=== PATIENT | female | born 1930 | race American Indian/Alaskan Native ===

== ENCOUNTER 2018-02-24 15:48 | Emergency (ER) | payer MEDICARE ==
[2018-02-24 15:49] VITALS: BMI 18.6
[2018-02-24 16:08] VITALS: TEMP 98
--- NOTE | 2018-02-24 16:14 | ED PDOC ---
Arrival/HPI - General Chief Complaint: Syncope Time Seen by Provider: 02/24/18 16:00 Historian: Patient - History of Present Illness Narrative History of Present Illness (Text): 02/24/18 16:06 A 87 year old female, whose past medical history includes hypertension, presents to the emergency department complaining of lightheadedness prior to arrival. Patient reports she was getting her hair/nails done and felt "faint" after standing up. Daughter reports patient needed assistance getting to the car. While in the emergency room, patient was brought in a wheelchair and helped getting onto the stretcher. On evaluation, patient reports she feels better and her symptom has improved. Patient denies any fever, chills, nausea, vomiting, abdominal pain, chest pain, shortness of breath or any other complaints. PMD: None; Patient is followed by home visiting nurse practitioner Time/Duration: Prior to Arrival Symptom Course: Improving Context: Other Past Medical History - Provider Review Nursing Documentation Reviewed: Yes - Infectious Disease Hx of Infectious Diseases: None - Tetanus Immunization Tetanus Immunization: Unknown - Cardiac Hx Hypertension: Yes - Neurological Hx Dizziness: Yes - Endocrine/Metabolic Hx Hypothyroidism: Yes - Hematological/Oncological Hx Blood Transfusions: No Hx Blood Transfusion Reaction: No - Musculoskeletal/Rheumatological Hx Falls: Yes (fell last month) - Psychiatric Hx Substance Use: No - Surgical History Hx Hysterectomy: Yes Other/Comment: ct scan guided right lateral chest/axillary pigtail chest tube , due to hemothorax post fall and fx ribs - Anesthesia Hx Anesthesia Reactions: No Hx Malignant Hyperthermia: No Family/Social History - Physician Review Nursing Documentation Reviewed: Yes Family/Social History: No Known Family HX Smoking Status: Former Smoker Hx Alcohol Use: No Hx Substance Use: No Allergies/Home Meds Allergies/Adverse Reactions: Allergies No Known Allergies Allergy (Verified 02/24/18 16:05) Home Medications: Home Meds Medication Instructions Recorded Confirmed Unobtainable 02/24/18 02/24/18 Review of Systems - Physician Review All systems were reviewed & negative as marked: Yes - Review of Systems Constitutional: absent: Fevers, Night Sweats Respiratory: absent: SOB Cardiovascular: absent: Chest Pain Gastrointestinal: absent: Abdominal Pain, Nausea, Vomiting Neurological: Other (Lightheadedness) Physical Exam Vital Signs Reviewed: Yes Vital Signs Temp Pulse Resp BP Pulse Ox 04/04/18 19:45 68 18 120/44 L 98 02/24/18 16:04 98.0 F 120 H 24 126/74 92 L Temperature: Afebrile Blood Pressure: Normal Pulse: Tachycardic Respiratory Rate: Normal Appearance: Positive for: Well-Appearing, Non-Toxic, Comfortable Pain Distress: None Mental Status: Positive for: Alert and Oriented X 3 - Systems Exam Head: Present: Atraumatic, Normocephalic Pupils: Present: PERRL Extroacular Muscles: Present: EOMI Conjunctiva: Present: Normal Mouth: Present: Moist Mucous Membranes Neck: Present: Normal Range of Motion Respiratory/Chest: Present: Clear to Auscultation, Good Air Exchange. No: Respiratory Distress, Accessory Muscle Use Cardiovascular: Present: Murmurs (2/6 systolic murmur), Normal S1, S2 Abdomen: No: Tenderness, Distention, Peritoneal Signs Back: Present: Normal Inspection Upper Extremity: Present: Normal Inspection. No: Cyanosis, Edema Lower Extremity: Present: Normal Inspection. No: Edema Neurological: Present: GCS=15, CN II-XII Intact, Speech Normal Skin: Present: Warm, Dry, Normal Color. No: Rashes Psychiatric: Present: Alert, Oriented x 3, Normal Insight, Normal Concentration Medical Decision Making ED Course and Treatment: 02/24/18 16:06 Impression: A 87 year old female with lightheadedness. Patient notes her symptom has improved. Plan: -- Head CT -- Chest xray -- EKG -- Labs -- Reassess and disposition Progress Notes: EKG shows NSR at 68 BPM with normal intervals, normal axis. Interpreted by me. Report Date : 02/24/2018 16:37:02 Procedure: Chest xray Dictator : Jean Queen MD IMPRESSION: No acute cardiopulmonary disease appreciable. 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 Report Date : 02/24/2018 20:32:00 EXAM: CT Head Without Intravenous Contrast Dictated By: Jabier Rowan MD, MD IMPRESSION: 1. No acute intracranial hemorrhage or acute territorial type infarct. 2. There are periventricular foci of hypodensity, likely representing small vessel ischemic disease in a patient this age. 3. Mild atrophy. 4. Paranasal sinus disease is noted above. 02/24/18 20:53 On re-evaluation, patient feels better and is in no acute distress. I have discussed the results and plan with the patient, who expresses understanding. Patient in agreement with plan to be discharged home. Patient is stable for discharge. Patient was instructed to follow up with physician or return if symptoms worsen or new concerning symptoms arise. - Lab Interpretations Lab Results: 02/24/18 16:40 02/24/18 16:40 Lab Results 02/24/18 17:36: Urine Color Yellow, Urine Appearance Sl cloudy, Urine pH 7.0, Ur Specific [place] 1.020, Urine Protein 100 H, Urine Glucose (UA) Negative, Urine Ketones Negative, Urine Blood Negative, Urine Nitrate Negative, Urine Bilirubin Negative, Urine Urobilinogen 0.2, Ur Leukocyte Esterase Negative, Urine RBC Negative, Urine WBC 1 - 3, Ur Epithelial Cells 0 - 2, Urine Bacteria Few 02/24/18 16:40: Sodium 139, Potassium 3.8, Chloride 102, Carbon Dioxide 26, Anion Gap 16, BUN 20, Creatinine 0.7, Est GFR ( Amer) > 60, Est GFR (Non- Af Amer) > 60, Random Glucose 172 H, Calcium 11.0 H, Total Bilirubin 0.7, AST 32 , ALT 30, Alkaline Phosphatase 88, Lactate Dehydrogenase 511, Total Creatine Kinase 66, Troponin I < 0.01 D, Total Protein 8.4 H, Albumin 4.5, Globulin 3.9 , Albumin/Globulin Ratio 1.1 02/24/18 16:40: PT 13.8 H, INR 1.21 H 02/24/18 16:40: WBC 6.5, RBC 4.20, Hgb 12.7, Hct 37.5, MCV 89.3, MCH 30.2, MCHC 33.9, RDW 13.6, Plt Count 208, MPV 10.6, Gran % 58.0, Lymph % (Auto) 33.5, Dare % (Auto) 7.4 H, Eos % (Auto) 0.8 L, Baso % (Auto) 0.3, Gran # 3.76, Lymph # ( Auto) 2.2, Dare # (Auto) 0.5, Eos # (Auto) 0.1, Baso # (Auto) 0.02 I have reviewed the lab results: Yes - RAD Interpretation Radiology Orders: 02/24/18 16:06 HEAD W/O CONTRAST [CT] Stat CHEST PORTABLE [RAD] Stat - Scribe Statement The provider has reviewed the documentation as recorded by the Scribe Rosio Azar Provider Scribe Attestation: All medical record entries made by the Scribe were at my direction and personally dictated by me. I have reviewed the chart and agree that the record accurately reflects my personal performance of the history, physical exam, medical decision making, and the department course for this patient. I have also personally directed, reviewed, and agree with the discharge instructions and disposition. Disposition/Present on Arrival - Present on Arrival Any Indicators Present on Arrival: No History of DVT/PE: No History of Uncontrolled Diabetes: No Urinary Catheter: No History of Decub. Ulcer: No History Surgical Site Infection Following: None - Disposition Have Diagnosis and Disposition been Completed?: Yes Diagnosis: Near syncope Disposition: HOME/ ROUTINE Disposition Time: 20:49 Patient Plan: Discharge Patient Problems: Current Active Problems Problem Status Onset Near syncope Acute Condition: GOOD Discharge Instructions (ExitCare): Near Fainting (DC) Additional Instructions: [place] - I am not certain what happened earlier today, but all your test results look good. Please follow up with your doctor tomorrow. Take all of your test results with you. Return to us if worse or any problems. Edward- Dr. Miguel Aguirre Referrals: Taryn Elam, RN, MSN, [employer] [Primary Care Provider] - Follow up with primary Forms: [facility] (Sami)
--- NOTE | 2018-02-24 16:38 | RAD ---
HISTORY: Near Syncope COMPARISON: No prior. FINDINGS: LUNGS: No active pulmonary disease. PLEURA: Chronic fibrosis likely blunts the right costophrenic sulcus with small chronic right pleural effusion not completely excluded. CARDIOVASCULAR: Prominent cardiac silhouette appears stable. No pulmonary vascular derangement identified. OSSEOUS STRUCTURES: No significant abnormalities. VISUALIZED UPPER ABDOMEN: Normal. OTHER FINDINGS: None. IMPRESSION: No acute cardiopulmonary disease appreciable. 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
[2018-02-24 16:58] LABS: BASO # 0.02 K/mm3 (0.0-2.0); BASO % 0.3 % (0.0-3.0); EOS # 0.1 (0.0-0.7); EOS % 0.8 % (1.5-5.0); GRAN # 3.76 (1.4-6.5); HEMOGLOBIN 12.7 g/dL (12.0-16.0); LYMPH # 2.2 (1.2-3.4); LYMPH % 33.5 % (22.0-35.0); MEAN CELL VOLUME 89.3 fl (80.0-105.0); MEAN CORPUSCULAR HEMOGLOBIN 30.2 pg (25.0-35.0); MEAN CORPUSCULAR HGB CONC 33.9 g/dl (31.0-37.0); MEAN PLATELET VOLUME 10.6 fl (7.0-11.0); MONO # 0.5 (0.1-0.6); MONO % 7.4 % (1.0-6.0); RBC 4.2 10^6/uL (3.5-6.1); RED CELL DISTRIBUTION WIDTH 13.6 % (11.5-14.5); WHITE BLOOD COUNT 6.5 10^3/ul (4.5-11.0)
[2018-02-24 17:09] LABS: ALB/GLOB RATIO 1.1 (1.1-1.8); ALBUMIN 4.5 g/dL (3.0-4.8); ALT/SGPT 30 U/L (7-56); AST/SGOT 32 U/L (14-36); BLOOD UREA NITROGEN 20 mg/dL (7-21); GFR AFRICAN-AMERICAN > 60; GFR NON-AFRICAN AMERICAN > 60
[2018-02-24 17:15] LABS: INR 1.21 (0.93-1.08); PROTHROMBIN TIME 13.8 SECONDS (9.4-12.5)
[2018-02-24 17:20] LABS: TROPONIN I < 0.01 ng/mL
[2018-02-24 19:45] VITALS: RESP 18
[2018-02-24 19:45] LABS: URINE BILIRUBIN NEGATIVE (NEGATIVE); URINE BLOOD NEGATIVE (NEGATIVE); URINE GLUCOSE (UA) NEGATIVE (NEGATIVE); URINE LEUKOCYTE ESTERASE NEGATIVE Leu/uL (NEGATIVE); URINE PROTEIN 100 mg/dL (<30 mg/dL); URINE UROBILINOGEN 0.2 E.U./dL (<1 E.U./dL)
[2018-02-24 19:48] LABS: URINE APPEARANCE SL CLOUDY (CLEAR); URINE COLOR YELLOW (YELLOW)
[2018-02-24 20:02] LABS: URINE BACTERIA FEW (NEG); URINE EPITHELIAL CELLS 0 - 2 /hpf (0-5); URINE RBC NEGATIVE /hpf (0-2)
--- NOTE | 2018-02-24 20:32 | CT ---
EXAM: CT Head Without Intravenous Contrast EXAM DATE/TIME: 02/24/2018 4:06 PM CLINICAL HISTORY: The patient age is 87 years old and is female; Signs and symptoms; Syncope and collapse; Additional info: Near syncope Facility exam id and description: Ct heads head w/o contrast TECHNIQUE: Axial computed tomography images of the head/brain without intravenous contrast. All CT scans at this facility use one or more dose reduction techniques, viz.: automated exposure control; ma/kV adjustment per patient size (including targeted exams where dose is matched to indication; i.e. head); or iterative reconstruction technique. Coronal and sagittal reformatted images were created and reviewed. COMPARISON: CT - HEAD W/O (CODE STROKE) 2016-08-07 14:01 FINDINGS: Brain: There are periventricular foci of hypodensity, likely representing small vessel ischemic disease in a patient this age. The acuity of the white matter disease is indeterminate. The white-peguero differentiation is preserved demonstrating no acute territorial type infarct. No acute intracranial hemorrhage is seen. There are calcifications within the globus pallidus bilaterally, which are likely physiologic. Midline shift: There is no midline shift. Ventricles: There is mild prominence of the ventricles and sulci, compatible with atrophy. Bones/joints: The calvarium demonstrates no evidence for a depressed fracture. Soft tissues: No acute abnormality. Vasculature: There is atherosclerotic calcification of the intracranial internal carotid arteries and distal vertebral arteries. Sinuses: Mucosal thickening with mucous retention cysts or polyps are visualized within the right maxillary sinus. There is opacification of a left mid ethmoid air cell. Mastoid air cells: No mastoid effusion. IMPRESSION: 1. No acute intracranial hemorrhage or acute territorial type infarct. 2. There are periventricular foci of hypodensity, likely representing small vessel ischemic disease in a patient this age. 3. Mild atrophy. 4. Paranasal sinus disease is noted above.
--- NOTE | 2018-02-24 20:49 | CARD ---
APPROVED REPORT EKG Measurement Heart [id number] <Conclusion> Normal sinus rhythm with sinus arrhythmia Possible Left atrial enlargement Borderline ECG
[2018-02-24 21:22] VITALS: BP 118/82; PULSE 70; O2SAT 100
== END 2018-02-24 21:00 | disposition home or self-care (01) ==
LOC: ED 15:48
DX: R55 Syncope and collapse (principal); I10 Essential (primary) hypertension; Z87.891 Personal history of nicotine dependence